=== PATIENT | female | born 1960 | race Two or more races ===

== ENCOUNTER 2019-01-31 07:39 | Inpatient (IN) | payer OTHER ==
[~2019-01-31] VITALS: Ht 165.1 cm; Wt 49.0 kg
== END 2019-02-09 09:46 | disposition home or self-care (01) | DRG 743 ==
LOC: SURH 02-06 07:45 → OB/GYN 02-06 08:11 → O/R 02-06 08:11 → SURH 02-06 09:30 → OB/GYN 02-06 16:09
PROVIDERS: ADMIT Obstetrics & Gynecology
PROC: 0UT00ZZ Resection of Right Ovary, Open Approach (ICD-10-PCS; 2019-02-06)
PROC: 0UT90ZZ Resection of Uterus, Open Approach (ICD-10-PCS; principal; 2019-02-06 09:30)
PROC: 0UT70ZZ Resection of Bilateral Fallopian Tubes, Open Approach (ICD-10-PCS; 2019-02-06 09:30)
DX: N83.8 Other noninflammatory disorders of ovary, fallopian tube and broad ligament (principal); N73.6 Female pelvic peritoneal adhesions (postinfective); N72 Inflammatory disease of cervix uteri; N84.0 Polyp of corpus uteri; D25.1 Intramural leiomyoma of uterus; N83.311 Acquired atrophy of right ovary